=== PATIENT | male | born 1950 | race Caucasian/White ===

== ENCOUNTER → 2017-03-04 | Outpatient (CLI) | payer MEDICARE | END | disposition home or self-care (01) | LOC: PCVCCLINIC 14:31 | PROVIDERS: ATTEND Internal Medicine Cardiovascular Disease | DX: I25.10 Atherosclerotic heart disease of native coronary artery without angina pectoris (principal); I10 Essential (primary) hypertension; I70.1 Atherosclerosis of renal artery; G45.9 Transient cerebral ischemic attack, unspecified; E78.00 Pure hypercholesterolemia, unspecified; Z86.73 Personal history of transient ischemic attack (TIA), and cerebral infarction without residual deficits; Z95.828 Presence of other vascular implants and grafts; Z79.899 Other long term (current) drug therapy | CPT/HCPCS: 80061; 93005; G0463 ==

== ENCOUNTER → 2017-08-03 | Outpatient (CLI) | payer MEDICARE | END | disposition home or self-care (01) | LOC: PCVCCLINIC 09:20 | DX: I25.10 Atherosclerotic heart disease of native coronary artery without angina pectoris (principal); I10 Essential (primary) hypertension; I70.1 Atherosclerosis of renal artery; G45.9 Transient cerebral ischemic attack, unspecified; Z79.899 Other long term (current) drug therapy; Z79.82 Long term (current) use of aspirin | CPT/HCPCS: 80061; 93005; G0463 ==

== ENCOUNTER → 2018-05-19 | Outpatient (CLI) | payer MEDICARE | END | disposition home or self-care (01) | LOC: PCVCCLINIC 13:00 | PROVIDERS: ATTEND Internal Medicine Cardiovascular Disease | DX: I25.10 Atherosclerotic heart disease of native coronary artery without angina pectoris (principal); I70.1 Atherosclerosis of renal artery; G45.9 Transient cerebral ischemic attack, unspecified; E78.5 Hyperlipidemia, unspecified; I10 Essential (primary) hypertension; Z85.46 Personal history of malignant neoplasm of prostate; Z79.82 Long term (current) use of aspirin | CPT/HCPCS: 36415; 80061; 93005; G0463 ==

== ENCOUNTER → 2018-11-05 | Outpatient (CLI) | payer MEDICARE ==
--- NOTE | 2018-11-04 17:03 | PCVCIMAG ---
APPROVED REPORT Study performed: 11/04/2018 11:03:35 Exam: Stress Echocardiogram Indication: Hypertension, Hyperlipidemia Patient Location: Echo lab Stress Nurse: Jaleesa Schafer RN Status: routine Ht: 6 ft 0 in HR: 66 bpm BP: 160/90 mmHg Rhythm: NSR Medical History Medical History: CAD, TIA Procedure The patient underwent an Exercise Stress Test using the George Protocol. Blood pressure, heart rate, and EKG were monitored. An Echocardiogram was performed by analytical lab technician in four stages in quad fashion. At peak stress, four selected images were obtained and placed side by side with resting images for comparison. Stress Test Details Stress Test: Exercise stress testing was performed using a George protocol. HR Resting HR: 66 bpmMax Heart Rate (APMHR): 150 bpm Max HR Achieved: 106 bpmTarget HR (85% APMHR): 127 bpm % of APMHR: 70 Recovery HR: 69 bpm HR response to stress: Blunted HR response to stress BP Resting BP: 160/90 mmHg Max BP: 186/110 mmHg Recovery BP: 160/90 mmHg BP response to stress: Normal blood pressure response to stress. ECG Resting ECG: Sinus Rhythm Stress ECG: Sinus Rhythm Arrhythmia: PVC's, couplets Recovery ECG: Sinus Rhythm Recovery Arrhythmia: PVC's, couplets, Clinical Reason for Termination: Dyspnea Exercise duration: 4 min 24 sec Highest Stage Achieved: Stage 2: 2.5 mph at 12% grade. Exercise capacity: 7.00 METs Overall Exercise Capacity for Age: Poor Stress ECG Conclusion Submaximal stress test. Unable to achieve heart rate. Patient had to stop due to dyspnea. Pre-Stress Echo The resting Echocardiogram showed normal left ventricular contractility with an estimated Ejection Fraction of about >55%. Post-Stress Echo The stress Echocardiogram showed normal left ventricular contractility with an estimated Ejection Fraction of about >55%. Conclusion Clinical Response: Non-ischemic Exercise Capacity: Below Average Stress ECG Response: Indeterminant Stress Echo Images: Indeterminant Other Information Study Quality: Good
--- NOTE | 2018-11-04 17:57 | PCVCIMAG ---
EXAM: BILATERAL RENAL ULTRASOUND AND BILATERAL RENAL DUPLEX INDICATION: Hypertension FINDINGS: Right kidney: Length measures 12.3 cm. No hydronephrosis or extensive renal scarring. 4.7 x 6.4 x 7.4 cm benign cyst upper pole. Right renal duplex: Adequate technical quality. No sonographic evidence of renal artery stenosis. The aortic to renal artery ratio is 1.5. The renal vein is patent. Left kidney: Length measures 12.1 cm. No hydronephrosis or extensive renal scarring. Left renal duplex: Adequate technical quality. No sonographic evidence of renal artery stenosis. The aortic to renal artery ratio is 1.8. The renal vein is patent. Bladder: No obvious abnormalities. IMPRESSION: No significant renal artery stenosis. No hydronephrosis bilaterally. LOC:[id number]
== END | disposition home or self-care (01) ==
LOC: PCVCIMAG 08:00
PROVIDERS: ATTEND Internal Medicine Cardiovascular Disease
DX: I10 Essential (primary) hypertension (principal); E78.5 Hyperlipidemia, unspecified; I25.10 Atherosclerotic heart disease of native coronary artery without angina pectoris
CPT/HCPCS: 76770; 93325; 93351; 93975